=== PATIENT | female | born 1965 | race American Indian/Alaskan Native ===

== ENCOUNTER 2016-10-31 11:02 | Outpatient (CLI) | payer OTHER ==
[2016-10-31 11:22] LABS: Basophils % (Auto) 0.4 % (0.0-1.8); Eosinophils % (Auto) 2.7 % (0.0-4.3); Hematocrit 35.8 % (30.3-42.9); Hemoglobin 11.6 gm/dl (10.1-14.3); Mean Corpuscular HGB Conc 33 % (30-34); Mean Corpuscular Volume 79 fl (79-97); Platelet Count 244 K/mm3 (140-440); Red Blood Count 4.55 M/mm3 (3.65-5.03); Red Cell Distribution Width 15.7 % (13.2-15.2); White Blood Count 4.9 K/mm3 (4.5-11.0)
[2016-10-31 11:33] LABS: Mean Corpuscular Hemoglobin 26 pg (28-32)
[2016-10-31 11:48] LABS: Alanine Aminotransferase 21 units/L (7-56); Albumin 4.4 g/dL (3.9-5); Albumin/Globulin Ratio 1.2 %; Alkaline Phosphatase 46 units/L (35-129); Anion Gap 20 mmol/L; BUN/Creatinine Ratio 23.75; Bilirubin,Total 0.2 mg/dL (0.1-1.2); Blood Urea Nitrogen 19 mg/dL (7-17); Calcium 9.9 mg/dL (8.4-10.2); Carbon Dioxide 26 mmol/L (22-30); Chloride 98.4 mmol/L (98-107); Cholesterol 191 mg/dL (50-199); Glucose 96 mg/dL (65-100); HDL Cholesterol 70 mg/dL (40-59); LDL Cholesterol,Direct 73 mg/dL (50-130); Potassium 4.1 mmol/L (3.6-5.0); Sodium 140 mmol/L (137-145); Triglycerides 242 mg/dL (2-149)
== END 2016-10-31 11:03 | disposition home or self-care (01) ==
LOC: LABHHL 11:02
PROVIDERS: ATTEND Specialist
DX: Z00.00 Encounter for general adult medical examination without abnormal findings (principal); E11.9 Type 2 diabetes mellitus without complications; D50.9 Iron deficiency anemia, unspecified; E61.8 Deficiency of other specified nutrient elements; K30 Functional dyspepsia
CPT/HCPCS: 36415; 80053; 80061; 83036; 84443; 85025